=== PATIENT | male | born 1955 | race Caucasian/White ===

== ENCOUNTER → 2017-11-02 | Outpatient (CLI) | payer OTHER ==
--- NOTE | 2017-11-02 14:48 | RAD ---
CT LOWER EXTREMITY WO LEFT Indication: Patient unable to bend knee, discomfort walking. Pain when standing on knee. Replacement done several years ago Exposure: One or more of the following individualized dose reduction techniques were utilized for this examination: 1. Automated exposure control 2. Adjustment of the mA and/or kV according to patient size 3. Use of iterative reconstruction technique. Comparison: None are available. Contrast: None Left knee replacement results in metal artifact. 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 There is a thin band of sclerosis marginating this lucency. This does violate the posterior cortex at the lateral tibial plateau. There is a uniform lucencies surrounding the femoral stem and cement, with a thin sclerotic demarcation line. This lucency become somewhat wider distally and also surrounds the medial and lateral femoral condyle. No overtly aggressive bone destruction. No evidence of acute fracture. Alignment is intact. Joint effusion identified in the suprapatellar recess. IMPRESSION: 1. Thin uniform lucency around the femoral bone-cement interface with a thin uniform band of demarcation sclerosis. Significance uncertain, but this finding can be associated with loosening. 2. There is a more focal osteolysis about the posterior tibial plateau, just below the prosthesis with an incomplete sclerotic demarcation line. Possibilities include aggressive granulomatosis or loosening. 3. Joint effusion of uncertain sterility. 4. Although no aggressive bone destruction is seen, acute or chronic osteomyelitis is possible, if supported by clinical/laboratory findings. Electronically signed by: Michael Valentino MD (11/02/2017 2:45 PM) [id number]
== END | disposition home or self-care (01) ==
LOC: CT 07:40
PROVIDERS: ATTEND Physical Medicine & Rehabilitation
DX: M85.862 Other specified disorders of bone density and structure, left lower leg (principal); M25.462 Effusion, left knee
CPT/HCPCS: 73700